=== PATIENT | female | born 1970 | race Caucasian/White ===

== ENCOUNTER → 2016-05-03 | Outpatient (CLI) | payer OTHER ==
--- NOTE | 2016-05-03 20:27 | WWHP ---
DATE OF SERVICE: 05/03/2016. CHIEF COMPLAINT: Patient is here for her routine gynecologic exam and mammogram. HPI: This is a 45-year-old G3, P3 with an LMP of 04/18/2016. She is status post tubal ligation. She says it has been more than 5 years since her last pelvic exam and Pap smear. She had an abnormal Pap smear and underwent colposcopy which then required a LEEP procedure of the cervix. Because of the positive margins, she did have a cone biopsy of the cervix in approximately 2009. She states she has not had follow-up since then and has not had any Pap smears since then. She denies any breakthrough bleeding and her periods are regular every month. She is without gynecologic complaints. PAST MEDICAL HISTORY: Anxiety. Her primary care physician is Dr. Pop. MEDICATIONS: Citalopram 10 mg daily. ALLERGIES: No known drug allergies. PAST SURGICAL HISTORY: tubal sterilization, LEEP procedure of the cervix and cold knife conization of the cervix approximately 2009 by myself. Past OB history: 3 vaginal deliveries. 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 FAMILY HISTORY: Father had an MO. She denies family history of cancer of the breast, uterus, ovaries or colon. SOCIAL HISTORY: She quit smoking in 2005. She denies alcohol and drug use. She has been since 1996. She and her run a [employer]. 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 REVIEW OF SYSTEMS: Weight has been stable over the last year but over the last 10 years she states she has gained about 20 pounds. She denies respiratory, cardiac, or GI problems. PHYSICAL EXAM: Initial blood pressure was 162/86. Repeat blood pressure was 128/76. Height 5 feet 4 inches. Weight 139 pounds. Temperature 96.5, pulse 117, this is a well-developed, well-nourished white female who is alert and oriented x3 in no acute distress. HEENT is within normal limits. NECK: Supple without mass or thyromegaly. CHEST AND LUNGS: Clear to auscultation. HEART: Mild tachycardia. Breasts are without mass or discharge. Axillary exam is negative for adenopathy. BACK: Negative for CVA tenderness. ABDOMEN: Soft, nontender, without palpable masses. PELVIC EXAM: Normal external genitalia. Cervix appears multiparous consistent with previous conization of the cervix. There are no lesions. There is no evidence of prolapse. The uterus is midposition, nongravid size and nontender. There are no palpable adnexal masses or tenderness. Rectal exam is negative for mass or tenderness and is negative for occult blood. EXTREMITIES: Nontender. IMPRESSION: 1. A 45-year-old female with normal gynecologic exam. 2. History of cold knife conization of the cervix, which was probably done for cervical dysplasia in approximately 2009. The patient did not have the recommended follow-up. PLAN: 1. Pap smear was performed. 2. Self-breast examination was discussed. 3. Mammogram will be done today. 4. We will obtain records from her conization of the cervix and obtain the pathology report. If no further surgery is indicated and the Pap smear is unremarkable, we will consider repeating the Pap smear in one year because of her history. 5. Her initial elevated blood pressure was discussed with the patient. She states this very unusual for her. She will have her blood pressure checked on a regular basis and follow up with her primary care physician if she does have blood pressure elevations. 6. She will return in one year. I have stressed importance of doing these gynecologic exams on a yearly basis.
--- NOTE | 2016-05-04 09:02 | MM ---
Reason for exam: screening (asymptomatic). Last mammogram was performed 12 years and 2 months ago. Physical Findings: A clinical breast exam by your physician is recommended on an annual basis and results should be correlated with mammographic findings. MG 3D Screening Mammo W/Cad Bilateral CC and MLO view(s) were taken. Prior study comparison: March 05, 2004, bilateral screening mammogram. The breast tissue is extremely dense which could obscure a lesion on mammography. There is no discrete abnormality. ASSESSMENT: Negative, BI-RAD 1 RECOMMENDATION: Routine screening mammogram of both breasts in 1 year.
== END | disposition home or self-care (01) ==
LOC: WWCWWP 10:44
PROVIDERS: ATTEND Obstetrics & Gynecology
DX: Z12.31 Encounter for screening mammogram for malignant neoplasm of breast (principal)
CPT/HCPCS: 77063; G0202

== ENCOUNTER → 2018-03-01 | Outpatient (CLI) | payer BC ==
[2018-03-01 11:52] LABS: Basophils # (A) 0.1 k/uL (0-0.2); Basophils % (A) 1 %; Eosinophils # (A) 0.2 k/uL (0-0.7); Eosinophils % (A) 3 %; HCT 44.8 % (34.0-46.0); HGB 14.8 gm/dL (11.4-16.0); Lymphocytes # (A) 1.6 k/uL (1.0-4.8); Lymphocytes % (A) 26 %; MCH 31.9 pg (25.0-35.0); MCHC 33.1 g/dL (31.0-37.0); MCV 96.3 fL (80.0-100.0); Mean Platelet Volume 7.3; Monocytes # (A) 0.3 k/uL (0-1.0); Monocytes % (A) 5 %; Neutrophils # (A) 3.9 k/uL (1.3-7.7); Neutrophils % (A) 63 %; Platelet Count 265 k/uL (150-450); RBC 4.65 m/uL (3.80-5.40); RDW 13.4 % (11.5-15.5); WBC 6.3 k/uL (3.8-10.6)
[2018-03-01 18:20] LABS: Albumin 4.2 g/dL (3.80-4.90); Albumin/Globulin Ratio 1.56 (1.20-2.10); Anion Gap 6.2 mmol/L (4.00-12.00); Calcium 9.2 mg/dL (8.7-10.3); Carbon Dioxide 27.8 mmol/L (21.6-31.8); Globulin 2.7 g/dL (1.6-3.3); Potassium 4.7 mmol/L (3.5-5.5); Total Bilirubin 0.4 mg/dL (0.3-1.2); Total Protein 6.9 g/dL (6.2-8.2)
[2018-03-01 18:21] LABS: LDL Cholesterol,Calculated 108.6 mg/dL (0.0-131.0); VLDL Calculation 44.4 mg/dL (5.00-40.00)
== END ==
LOC: LABWHC1 10:35
PROVIDERS: ATTEND Nurse Practitioner Family
DX: Z13.1 Encounter for screening for diabetes mellitus (principal); Z13.6 Encounter for screening for cardiovascular disorders
CPT/HCPCS: 36415; 80053; 80061; 85025

== ENCOUNTER → 2018-03-20 | Outpatient (CLI) | payer BC ==
[2018-03-20 11:15] VITALS: BP 146/96; PULSE 67; RESP 18; TEMP 98; BMI 23.5
--- NOTE | 2018-03-20 11:58 | P.HPOB ---
History of Present Illness H&P Date: 03/20/18 Chief Complaint: The patient is here for her routine gynecologic exam and mammogram. This is a 47-year-old G3 PIII with an LMP of 01/17/2018. She is status post tubal sterilization. She states her menstrual periods were regular up until October 2016. They became more spaced out and her last 2 menstrual periods were on 03/18/2017 and 01/17/2018. She denies hot flashes. She is otherwise without gynecologic complaints. Review of Systems The patient's weight has been stable over the last year. She denies respiratory , cardiac, or G.I. problems. 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 History of Any Multi-Drug Resistant Organisms: None Reported Past Surgical History: Tubal Ligation Additional Past Surgical History / Comment(s): heart (PDA?) 1975 age 4. LEEP then CKC of cervix 2008. Past Psychological History: No Psychological Hx Reported Smoking Status: Former smoker (Quit 2005) Past Alcohol Use History: Occasional (0-1 per month) Past Drug Use History: None Reported Additional History: She has been since 1996. She and her run a [employer]. She also does [employer]. - Past Family History Father Family Medical History: Myocardial Infarction ([place]) Medications and Allergies Home Medications Medication Instructions Recorded Confirmed Type No Known Home Medications 03/20/18 03/20/18 History Allergies Allergy/AdvReac Type Severity Reaction Status Date / Time No Known Allergies Allergy Unverified 03/20/18 11:05 Exam Vital Signs Temp Pulse Resp BP Pulse Ox 03/20/18 11:07 98.0 F 67 18 146/96 100 Intake and Output 03/19/18 03/20/18 03/20/18 22:59 06:59 14:59 Other: Weight 62.142 kg Height 5'4", weight 137 pounds, BMI 23.5. This is a well-developed well-nourished white female who is alert and oriented times 3 in no acute distress. HEENT: Within normal limits. NECK: Supple without mass or thyromegaly. CHEST AND LUNGS: Clear to auscultation. HEART: Regular rate and rhythm. BREASTS: Are without mass or discharge. AXILLARY EXAM: Negative for adenopathy. BACK: Negative for CVA tenderness. ABDOMEN: Soft, nontender, without palpable masses. PELVIC EXAM: Normal external genitalia. Cervix appears multiparous size with relatively small cervical os. There are no lesions. There is no unusual discharge. There is no evidence of prolapse. The uterus is midposition, nongravid size and nontender. There are no palpable adnexal masses or tenderness. RECTAL EXAM: negative for mass or tenderness and is negative for occult blood. EXTREMITIES: Nontender. IMPRESSION: 1. 47-year-old female with normal gynecologic exam who is status post tubal sterilization. Probable perimenopausal female with recent oligomenorrhea 2. 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 Pathology from the colonization of the cervix in 2008 showed low grade KATHERINE that extended to the ectocervical margin with a negative ECC. PLAN: 1. Pap smear was performed. She had a negative Pap smear on 05/03/2016. If this is negative, we will return to regular screening intervals about every 2 to 3 years. 2. Self breast awareness was discussed with the patient. 3. Screening mammogram will be done today. 4. Osteoporosis prevention was discussed. I have stressed the importance of adequate calcium, vitamin D and regular exercise. Recommended amounts of calcium and vitamin D were also discussed. 5. The patient will keep a menstrual calendar. She will call she's having menstrual problems or she has bleeding after 12 months of amenorrhea. 6. She will return in one year and PRN.
--- NOTE | 2018-03-21 10:04 | MM ---
Reason for exam: screening (asymptomatic). Last mammogram was performed 1 year and 10 months ago. Physical Findings: A clinical breast exam by your physician is recommended on an annual basis and results should be correlated with mammographic findings. MG 3D Screening Mammo W/Cad Bilateral CC and MLO view(s) were taken. Prior study comparison: May 03, 2016, bilateral MG 3d screening mammo w/cad. March 05, 2004, bilateral screening mammogram. The breast tissue is heterogeneously dense. This may lower the sensitivity of mammography. There is no discrete abnormality. No significant changes when compared with prior studies. ASSESSMENT: Negative, BI-RAD 1 RECOMMENDATION: Routine screening mammogram of both breasts in 1 year.
== END ==
LOC: WWCWWP 10:38
PROVIDERS: ATTEND Obstetrics & Gynecology
DX: Z12.31 Encounter for screening mammogram for malignant neoplasm of breast (principal)
CPT/HCPCS: 77063; 77067

== ENCOUNTER → 2021-07-12 | Outpatient (CLI) | payer BC ==
[2021-07-12 17:55] LABS: Basophils # (A) 0.07 X 10*3/uL (0.00-0.10); Basophils % (A) 0.9 %; Eosinophils # (A) 0.24 X 10*3/uL (0.04-0.35); Eosinophils % (A) 3.1 %; HCT 46.8 % (37.2-46.3); HGB 14.7 g/dL (12.0-15.0); Immature Grans, Automated 0.3 %; Lymphocytes # (A) 2.28 X 10*3/uL (0.90-5.00); Lymphocytes % (A) 29.3 %; MCH 30.9 pg (27.0-32.0); MCHC 31.4 g/dL (32.0-37.0); MCV 98.5 fL (80.0-97.0); Mean Platelet Volume 10.6 fL (9.5-12.2); Monocytes # (A) 0.63 X 10*3/uL (0.20-1.00); Monocytes % (A) 8.1 %; NRBC Per 100 WBC 0 /100 WBCS (0.0-0.0); Neutrophils # (A) 4.55 X 10*3/uL (1.80-7.70); Neutrophils % (A) 58.3 %; Platelet Count 327 X 10*3/uL (140-440); RBC 4.75 X 10*6/uL (4.10-5.20); RDW 13.1 % (11.5-14.5); WBC 7.79 X 10*3/uL (4.50-10.00)
[2021-07-12 18:22] LABS: ALT 41 U/L (8-44); AST 61 U/L (13-35); African American GFR (CKD) 117.9 (60.0-200.0); Albumin 4.7 g/dL (3.8-4.9); Albumin/Globulin Ratio 1.47 (1.60-3.17); Alkaline Phosphatase 81 U/L (41-126); BUN/Creat Ratio 19.14 Ratio (12.00-20.00); Blood Urea Nitrogen 13.4 mg/dL (9.0-27.0); Calcium 10.2 mg/dL (8.7-10.3); Carbon Dioxide 27.5 mmol/L (20.0-27.5); Chloride 103 mmol/L (96-109); Chol/HDL Ratio 5.69 Ratio; Globulin 3.2 g/dL (1.6-3.3); Glucose 86 mg/dL (70-110); LDL Cholesterol,Calculated 163.9 mg/dL (0.0-131.0); Non-African American GFR(CKD) 101.7 (60.0-200.0); Potassium 5.6 mmol/L (3.5-5.5); Sodium 142 mmol/L (135-145); Total Protein 7.9 g/dL (6.2-8.2)
== END | disposition home or self-care (01) ==
LOC: LABWHC1 12:20
PROVIDERS: ATTEND Family Medicine
DX: R73.03 Prediabetes (principal); E78.49 Other hyperlipidemia
CPT/HCPCS: 36415; 80053; 80061; 83036; 85025

== ENCOUNTER → 2022-02-28 | Outpatient (CLI) | payer BC ==
--- NOTE | 2022-03-01 08:14 | MM ---
Reason for Exam: Screening (asymptomatic). Last mammogram was performed 3 year(s) and 11 month(s) ago. Patient History: Menarche at age 13. First Full-Term at age 23. Patient has history of breast feeding. Risk Values: Pratima 5 year model risk: 0.9%. NCI Lifetime model risk: 8.0%. Prior Study Comparison: 03/05/2004 Bilateral Screening Mammogram, [facility]. 05/03/2016 Bilateral Screening Mammogram, [facility]. 03/20/2018 Bilateral Screening Mammogram, [facility]. Tissue Density: The breast tissue is heterogeneously dense. This may lower the sensitivity of mammography. Findings: Analyzed By CAD. There is no suspicious group of microcalcifications or new suspicious mass in either breast. Overall Assessment: Benign, BI-RAD 2 Management: Screening Mammogram of both breasts in 1 year. A clinical breast exam by your physician is recommended on an annual basis and results should be correlated with mammographic findings. Electronically signed and approved by: Danny Souza M.D. Radiologis
== END | disposition home or self-care (01) ==
LOC: RADMAMWWP 06:55
PROVIDERS: ATTEND Family Medicine
DX: Z12.31 Encounter for screening mammogram for malignant neoplasm of breast (principal)
CPT/HCPCS: 77063; 77067

== ENCOUNTER → 2023-08-07 | Outpatient (CLI) | payer BC ==
--- NOTE | 2023-08-08 10:50 | MM ---
Reason for Exam: Screening (asymptomatic). Last mammogram was performed 1 year(s) and 6 month(s) ago. Patient History: Menarche at age 13. First Full-Term at age 23. Patient has history of breast feeding. Last menstrual period: Risk Values: Pratima 5 year model risk: 0.9%. NCI Lifetime model risk: 7.9%. Prior Study Comparison: 05/03/2016 Bilateral Screening Mammogram, [facility]. 03/20/2018 Bilateral Screening Mammogram, [facility]. 02/28/2022 Bilateral MG 3D screening mammo w/cad, [facility]. Tissue Density: The breasts are heterogeneously dense, which may obscure small masses. Findings: Analyzed By CAD. There is no suspicious group of microcalcifications or new suspicious mass in either breast. Benign-appearing calcifications. Overall Assessment: Benign, BI-RAD 2 Management: Screening Mammogram of both breasts in 1 year. . Patient should continue monthly self-breast exams. A clinical breast exam by your physician is recommended on an annual basis. This exam should not preclude additional follow-up of suspicious palpable abnormalities. Note on Pratima scores and lifetime risk: 1. A Pratima score greater than 3% is considered moderate risk. If this is the case, consider specialist referral to assess eligibility for a risk reducing agent. 2. If overall lifetime risk for the development of breast cancer is 20% or higher, the patient may qualify for future screening with alternating mammogram and breast MRI. Electronically signed and approved by: Prieto Hood M.D. Radiologis
== END | disposition home or self-care (01) ==
LOC: RADMAMWWP 07:04
PROVIDERS: ATTEND Family Medicine
DX: Z12.31 Encounter for screening mammogram for malignant neoplasm of breast (principal)
CPT/HCPCS: 77063; 77067